=== PATIENT | female | born 1990 | race Caucasian/White ===

== ENCOUNTER 2018-12-15 19:07 | Emergency (ER) | payer MEDICAID ==
[~2018-12-15] VITALS: Ht 157.5 cm; Wt 44.5 kg
[~2018-12-15 19:07] MED LIST: AMOXICILLIN875 MG PO; NORCO 325 MG-51 TAB PO; PRENATAL1 TA7 PO; PROFERRIN ES12 MG PO
[2018-12-15 19:09] VITALS: BP 138/85; TEMP 98.2
[2018-12-15] MEDS ORDERED: TYLENOL 325MG325 MG PO (21:08)
[2018-12-15] MEDS ORDERED: IBU600 MG PO (21:08)
[2018-12-15] MEDS ORDERED: AMOXICILLIN 50500 MG PO (21:18)
[2018-12-15] MEDS ORDERED: NORCO 325 MG-51 TAB PO (21:18)
[2018-12-15 21:29] VITALS: PULSE 75
== END 2018-12-15 21:29 | disposition home or self-care (01) ==
LOC: COL.ER 19:07
DX: K02.9 Dental caries, unspecified (principal); F17.210 Nicotine dependence, cigarettes, uncomplicated

== ENCOUNTER 2019-05-09 08:02 | Emergency (ER) | payer MEDICAID ==
[~2019-05-09] VITALS: Ht 157.5 cm; Wt 47.7 kg
[~2019-05-09 08:02] MED LIST changes: +AMOXICILLIN 50500 MG PO; +IBU600 MG PO; +TYLENOL 325MG325 MG PO
[2019-05-09] MEDS ORDERED: AMOXICILLIN 50500 MG PO (08:26)
[2019-05-09 08:30] VITALS: BP 133/61; PULSE 56; TEMP 98
== END 2019-05-09 08:30 | disposition home or self-care (01) ==
LOC: COL.ER 08:02
DX: K02.9 Dental caries, unspecified (principal); F17.210 Nicotine dependence, cigarettes, uncomplicated